=== PATIENT | female | born 1935 | race Caucasian/White ===

== ENCOUNTER → 2017-08-31 08:48 | Outpatient (CLI) | payer MEDICARE ==
[2013-08-23 18:18] VITALS: BMI 26.6
[~2017-08-31 08:48] MED LIST: ASPIRIN 81 MG E81 MG PO; CARDIZEM60 MG PO; MULTI-DAY VITAM1 TAB PO; VIBRAMYCIN 100100 MG PO
[2017-08-31 09:17] LABS: HEMOGLOBIN A1C 6.1 % (4.8-6.0)
[2017-08-31 09:38] LABS: ANION GAP 16.5 mmol/L (8-16); CALCIUM 9.6 mg/dL (8.5-10.1); CARBON DIOXIDE 24.6 mmol/L (21.0-32.0); CREATININE - SERUM 1.1 mg/dL (0.6-1.3); POTASSIUM - SERUM 4.1 mmol/L (3.5-5.1)
== END | disposition home or self-care (01) ==
LOC: D.LAB 08:45
PROVIDERS: Family Medicine
DX: E03.9 Hypothyroidism, unspecified (principal); R73.9 Hyperglycemia, unspecified; E78.00 Pure hypercholesterolemia, unspecified; N18.9 Chronic kidney disease, unspecified

== ENCOUNTER → 2018-01-25 11:05 | Outpatient (CLI) | payer MEDICARE ==
[2013-08-23 18:18] VITALS: BMI 26.6
== END | disposition home or self-care (01) ==
LOC: D.CT 11:05
DX: F03.90 Unspecified dementia, unspecified severity, without behavioral disturbance, psychotic disturbance, mood disturbance, and anxiety (principal)

== ENCOUNTER 2019-08-15 11:48 | Emergency (ER) | payer MEDICARE ==
[~2019-08-15] VITALS: Ht 165.1 cm; Wt 65.9 kg
[2019-08-15 11:52] VITALS: Ht 165.1 cm; Wt 65.9 kg
[2019-08-15] MEDS ORDERED: ZOLOFT50 MG PO (11:53)
[2019-08-15] MEDS ORDERED: NAMENDA10 MG PO (11:54)
[2019-08-15 12:23] LABS: BASOPHILS 0.6 % (0-2); EOSINOPHILS 0.2 % (0-7); HEMATOCRIT 47.6 % (36.0-48.0); HEMOGLOBIN 16.4 g/dL (12-16); IMMATURE GRANULOCYTES 0.2 % (0-5); LYMPHOCYTES 31.2 % (15-50); MCH 33.3 pg (26.0-34.0); MCHC 34.5 g/dL (31.0-37.0); MCV 96.7 fL (80.0-100.0); MEAN PLATELET VOLUME 9.8 fL (7.4-10.4); NEUTROPHILS 48.8 % (40-80); RBC 4.92 10x6/uL (4.00-5.40); RDW 12.5 % (11.5-14.5); WBC 8.3 10x3/uL (4.8-10.8)
[2019-08-15 12:33] LABS: PLATELET COUNT 193 10x3/uL (130-400)
[2019-08-15 12:44] LABS: ANION GAP 15.2 mmol/L (8-16); CALCIUM 8.9 mg/dL (8.5-10.1); CARBON DIOXIDE 25.6 mmol/L (21.0-32.0); CREATININE - SERUM 1.2 mg/dL (0.6-1.3); POTASSIUM - SERUM 3.8 mmol/L (3.5-5.1)
[2019-08-15 12:46] LABS: ALBUMIN 3.6 g/dL (3.4-5.0); BILIRUBIN - TOTAL 0.44 mg/dL (0.2-1.3); PROTEIN - SERUM 6.9 g/dL (6.4-8.2)
[2019-08-15] MEDS ORDERED: VALTREX1000 MG PO (13:47)
[2019-08-15] MEDS ORDERED: KEFLEX500 MG PO (13:47)
[2019-08-15 14:33] VITALS: BP 134/75
== END 2019-08-15 14:18 | disposition home or self-care (01) ==
LOC: D.ER 11:48
PROVIDERS: Family Medicine
DX: B02.9 Zoster without complications (principal)

== ENCOUNTER → 2019-09-30 10:58 | Outpatient (CLI) | payer MEDICARE ==
[2019-08-15 11:52] VITALS: BMI 24.1
[~2019-09-30 10:58] MED LIST changes: +KEFLEX500 MG PO; +NAMENDA10 MG PO; +VALTREX1000 MG PO; +ZOLOFT50 MG PO
== END | disposition home or self-care (01) ==
LOC: D.MAMMO 10:58
PROVIDERS: ATTEND Nurse Practitioner Gerontology
DX: N63.20 Unspecified lump in the left breast, unspecified quadrant (principal)

== ENCOUNTER 2021-02-26 04:29 | Inpatient (IN) | payer MEDICARE ==
[~2021-02-26] VITALS: Ht 152.4 cm; Wt 54.5 kg
--- NOTE | 2021-02-26 04:45 | NUR ---
EMS PLACED TRAUMA BAND NUMBER [id number]
[2021-02-26] MEDS ORDERED: VITAMIN D325 MC1 PO (06:13)
[2021-02-26] MEDS ORDERED: FISH OIL 1,0001 CA1 PO (06:14)
[2021-02-26] MEDS ORDERED: MAG-OX 400 MG400 MG PO (06:15)
[2021-02-26] MEDS ORDERED: ATARAX 25 MG TA25 MG PO ×2 (06:15→13:22)
[2021-02-26] MEDS ORDERED: ACETAMINOPHEN325 MG PO (06:16)
[2021-02-26] MEDS ORDERED: VITAMIN E200 UNI1 PO (06:16)
[2021-02-26] MEDS ORDERED: MULTI-DAY VITAM1 TAB PO (06:16)
[2021-02-26 06:48] LABS: BILIRUBIN NEGATIVE (NEGATIVE); KETONE NEGATIVE (NEGATIVE); NITRITE NEGATIVE (NEGATIVE); UROBILINOGEN NORMAL mg/dL (< 2)
[2021-02-26 06:55] LABS: ANION GAP 16.3 mmol/L (8-16); CALCIUM 9.5 mg/dL (8.5-10.1); CARBON DIOXIDE 22.1 mmol/L (21.0-32.0); CREATININE - SERUM 1.2 mg/dL (0.6-1.3); POTASSIUM - SERUM 3.4 mmol/L (3.5-5.1)
[2021-02-26 06:57] LABS: BASOPHILS 0.2 % (0-2); EOSINOPHILS 0.1 % (0-7); HEMATOCRIT 42.9 % (36.0-48.0); HEMOGLOBIN 14.6 g/dL (12-16); IMMATURE GRANULOCYTES 0.4 % (0-5); LYMPHOCYTE ABS# 1.36 10x3/uL (1.18-3.74); MCH 31.5 pg (26.0-34.0); MCV 92.5 fL (80.0-100.0); MEAN PLATELET VOLUME 10.7 fL (7.4-10.4); MONOCYTES 6.1 % (2-11); NEUTROPHIL ABS# 14.53 10x3/uL (1.56-6.13); NEUTROPHILS 85.2 % (40-80); RBC 4.64 10x6/uL (4.00-5.40); RDW 12.9 % (11.5-14.5)
[2021-02-26 06:59] LABS: PLATELET COUNT 277 10x3/uL (130-400)
[2021-02-26 07:02] LABS: ALBUMIN 3.5 g/dL (3.4-5.0); BILIRUBIN - TOTAL 0.39 mg/dL (0.2-1.3); PROTEIN - SERUM 6.8 g/dL (6.4-8.2)
[2021-02-26 07:16] LABS: INR 1.1 (0.85-1.17); PROTIME 13.1 SECONDS (11.6-15.0)
--- NOTE | 2021-02-26 07:30 | NUR ---
ASSUMED CARE OF PT. RESTING IN BED. PT ALERT TO NAME ONLY. SKIN W/D/P. NAD NOTED. NS INFUSING @ 75 ML/HR LAC NO PROBLEMS AT INSERTION ASITE. VSS. S/O AT BS
--- NOTE | 2021-02-26 07:32 | NUR ---
PT NEEDING TO VOID, PLACED A PURWIC ON PT, CONNECTED TO SUCTION. 200CC OUT
[2021-02-26 07:51] VITALS: BP 168/71
--- NOTE | 2021-02-26 08:55 | NUR ---
PT SCREAMING/CALLING OUT. VERY AGGITATED. GORDY CORDON PAGED AND NEW ORDER RCVD/ADMIN
--- NOTE | 2021-02-26 09:27 | NUR ---
RESTING QUIETLY IN BED. VSS. S/O AT BS
[2021-02-26 09:28] VITALS: BP 163/71
--- NOTE | 2021-02-26 10:00 | NUR ---
MOBILE EQUIPMENT OPERATOR HERE. PT SCREAMS OUT WITH ANY MOVMENT. XRAYS COMPLETED. MED PER PRN ORDERS FOR PAIN
--- NOTE | 2021-02-26 10:26 | NUR ---
PT RESTING QIETLY IN BED WITH EYES CLOSED, SNORING RESP. O2 SATS 88-89 % ON RA. O2 PLACED @ 2 L PNC AND SATS IMMED IMPROVED TO 95-97%
[2021-02-26 11:30] VITALS: BP 156/70
--- NOTE | 2021-02-26 11:46 | NUR ---
REPORT TO DULCE LESLIE
--- NOTE | 2021-02-26 13:17 | NUR ---
REC'D TO ROOM 2227 WITH ALERT TO SELF ONLY. RESP EVEN AND UNLABORED WITH NO DISTRESS NOTED. CAN VOICE SOME NEEDS AND WANTS. INCONT AT TIMES WITH ANSELMO CARE GIVEN PRN AND EVERY 2 HOURS. PURWICK IN USE. NO C/O NOTED OR VOICED AT THIS TIME. AND CL IN REACH AT BEDSIDE.
[2021-02-26 14:59] VITALS: BP 151/75
[2021-02-26 17:32] VITALS: BP 150/70
[2021-02-26 21:31] VITALS: BP 160/76
--- NOTE | 2021-02-26 22:43 | NUR ---
PT RESTING IN BED. PT IS CONFUSED. PT COMPLAINS OF PAIN TO LEFT HIP AREA. PAIN MEDICATION WAS GIVEN. O2 AT 2-3L WAS PLACED DUE TO O2 READING BEING 88% ROOM AIR. BED IN LOW POSITION AND CALL LIGHT IN REACH.
[2021-02-27 01:08] VITALS: BP 166/79
[2021-02-27 05:41] VITALS: BP 168/81
[2021-02-27 06:58] LABS: BASOPHILS 0.2 % (0-2); EOSINOPHILS 0.8 % (0-7); HEMATOCRIT 37.7 % (36.0-48.0); HEMOGLOBIN 12.4 g/dL (12-16); IMMATURE GRANULOCYTES 0.3 % (0-5); LYMPHOCYTE ABS# 1.69 10x3/uL (1.18-3.74); MCH 30.7 pg (26.0-34.0); MCHC 32.9 g/dL (31.0-37.0); MCV 93.3 fL (80.0-100.0); MEAN PLATELET VOLUME 10.9 fL (7.4-10.4); NEUTROPHIL ABS# 6.94 10x3/uL (1.56-6.13); NEUTROPHILS 69.7 % (40-80); PLATELET COUNT 244 10x3/uL (130-400); RBC 4.04 10x6/uL (4.00-5.40); RDW 12.9 % (11.5-14.5)
[2021-02-27 07:31] LABS: ALBUMIN 2.9 g/dL (3.4-5.0); ANION GAP 12.1 mmol/L (8-16); BILIRUBIN - TOTAL 0.85 mg/dL (0.2-1.3); CALCIUM 8.3 mg/dL (8.5-10.1); CARBON DIOXIDE 26.6 mmol/L (21.0-32.0); POTASSIUM - SERUM 3.7 mmol/L (3.5-5.1); PROTEIN - SERUM 5.6 g/dL (6.4-8.2)
--- NOTE | 2021-02-27 07:34 | NUR ---
RECIEVED BEDSIDE REPORT. BED LOW POSITION, CALL LIGHT IN REACH. PATIENT CONFUSED. RAFAELA ALARM ON. COMPLAINS OF PAIN IN BROKEN HIP. WILL CONTINUE TO MONITOR.
[2021-02-27 09:07] VITALS: BP 139/58
[2021-02-27 14:06] VITALS: BP 143/56
[2021-02-27 16:12] VITALS: BP 148/68
[2021-02-27 20:00] VITALS: BP 132/67
[2021-02-28] VITALS: BP 166/79
[2021-02-28 06:18] LABS: ALBUMIN 2.6 g/dL (3.4-5.0); ANION GAP 11.1 mmol/L (8-16); BILIRUBIN - TOTAL 0.59 mg/dL (0.2-1.3); CALCIUM 8.6 mg/dL (8.5-10.1); CARBON DIOXIDE 26.5 mmol/L (21.0-32.0); CREATININE - SERUM 0.9 mg/dL (0.6-1.3); POTASSIUM - SERUM 3.6 mmol/L (3.5-5.1); PROTEIN - SERUM 5.7 g/dL (6.4-8.2)
[2021-02-28 06:25] LABS: BASOPHILS 0.2 % (0-2); EOSINOPHILS 3.3 % (0-7); HEMATOCRIT 36.4 % (36.0-48.0); HEMOGLOBIN 11.7 g/dL (12-16); IMMATURE GRANULOCYTES 0.2 % (0-5); LYMPHOCYTE ABS# 1.84 10x3/uL (1.18-3.74); LYMPHOCYTES 18.7 % (15-50); MCH 30.4 pg (26.0-34.0); MCHC 32.1 g/dL (31.0-37.0); MCV 94.5 fL (80.0-100.0); MEAN PLATELET VOLUME 11.4 fL (7.4-10.4); MONOCYTES 9.6 % (2-11); PLATELET COUNT 214 10x3/uL (130-400); RBC 3.85 10x6/uL (4.00-5.40); WBC 9.9 10x3/uL (4.8-10.8)
[2021-02-28 07:40] VITALS: BP 160/66
--- NOTE | 2021-02-28 07:40 | NUR ---
RECIEVED BEDSIDE REPORT. BED LOW POSITION, CALL LIGHT IN REACH. PATIENT CONFUSED, AND AGITATED. FREE FROM SIGNS OF DISTRESS. REFUSES TO WEAR OXYGEN CANNULA. SATURATION STAYING AROUND 93%. WILL CONTINUE TO MONITOR.
[2021-02-28 08:29] VITALS: BP 161/69
--- NOTE | 2021-02-28 11:21 | NUR ---
PATIENT PULLED OUT IV. WILL ATTEMPT TO PLACE ONE TODAY DUE TO PATIENT REFUSING TO LET US STICK AT THIS TIME.
--- NOTE | 2021-02-28 12:27 | NUR ---
22 GAUGE IV PLACED IN THE LEFT WRIST.
[2021-02-28 13:34] VITALS: BP 151/55
[2021-02-28 17:30] VITALS: BP 168/75
--- NOTE | 2021-02-28 17:33 | NUR ---
IN BED CALLING OUT FOR HER MOTHER. PATIENT REFUSES TO TELL THE NURSE WHAT SHE NEEDS. DEMENTIA RELATED CONFUSION. FREE FROM SIGNS OF DISTRESS. WILL CONTINUE TO MONITOR.
[2021-03-01] VITALS (9 sets, daily range): BP systolic 131–164; BP diastolic 38–86; Ht 152.4 cm; Wt 54.5 kg
[2021-03-01 06:29] LABS: BASOPHILS 0.2 % (0-2); EOSINOPHILS 2.7 % (0-7); HEMOGLOBIN 12.6 g/dL (12-16); IMMATURE GRANULOCYTES 0.2 % (0-5); LYMPHOCYTE ABS# 1.56 10x3/uL (1.18-3.74); LYMPHOCYTES 15.1 % (15-50); MCH 30.4 pg (26.0-34.0); MCHC 33.2 g/dL (31.0-37.0); MEAN PLATELET VOLUME 11.2 fL (7.4-10.4); MONOCYTES 12.2 % (2-11); NEUTROPHIL ABS# 7.18 10x3/uL (1.56-6.13); NEUTROPHILS 69.6 % (40-80); PLATELET COUNT 242 10x3/uL (130-400); RBC 4.14 10x6/uL (4.00-5.40); RDW 12.6 % (11.5-14.5); WBC 10.3 10x3/uL (4.8-10.8)
[2021-03-01 06:40] LABS: MCV 91.8 fL (80.0-100.0)
[2021-03-01 06:53] LABS: ALBUMIN 2.8 g/dL (3.4-5.0); ANION GAP 17.6 mmol/L (8-16); BILIRUBIN - TOTAL 0.99 mg/dL (0.2-1.3); CALCIUM 8.7 mg/dL (8.5-10.1); CARBON DIOXIDE 23.9 mmol/L (21.0-32.0); CREATININE - SERUM 0.9 mg/dL (0.6-1.3); POTASSIUM - SERUM 3.5 mmol/L (3.5-5.1); PROTEIN - SERUM 5.7 g/dL (6.4-8.2)
--- NOTE | 2021-03-01 07:00 | NUR ---
PT NPO SINCE MIDNIGHT. CONFUSED. HIBICLENS AND BED CHANGE COMPLETE. EKG ON CHART. CONSENTS SIGNED BY SPOUSE AND ON CHART.
--- NOTE | 2021-03-01 18:14 | NUR ---
PT ARRIVED TO OR WITH GOLD RING ON LEFT RING FINGER. PT WAS COMBATIVE SO RING WAS REMOVED AFTER ANESTHESIA WAS ADMINISTERED. CONTATED FLOOR TO HAVE NURSE TAKE AND SECURE JEWERLY. WHEN NO ONE ARRIVED TO RETRIEVE JEWERLY, I TOOK THE RING TO THE FLOOR NURSE TAKING CARE OF THE PATIENT ON MED-SURGLEVAR. RING WAS PLACED IN A BAG AND MARKED WITH A PATIENT STICKER BEFORE GIVING IT TO JENNIFER.
--- NOTE | 2021-03-01 18:21 | NUR ---
PT LEFT HIP/LEG CLEANSED WITH ALCOHOL PRIOR TO PREP. PREPPED WITH CHLORAPREP x2 FROM ABOVE HIP TO CALF CIRCUMFERENTIALLY. RN IN STERILE ATTIRE TO PREP.
[2021-03-02] VITALS (8 sets, daily range): BP systolic 116–161; BP diastolic 61–75
--- NOTE | 2021-03-02 07:22 | NUR ---
PATIENT RETURNED FROM SURGERY IN STABLE CONDITION, PAIN WAS MANAGED WITH THE PRESCRIBED PAIN MEDICATION, SHE PULLED OUT HER IV, TRIED TO PULL OUT CATHETER, REFUSED SCD'S, TRIED TO PUT TELE ON AND SHE KEEPS HITTING AT ME, SHE IS CURRENTLY RESTING IN BED WITH HER EYES CLOSED.
[2021-03-02 07:44] LABS: BASOPHILS 0 % (0-2); EOSINOPHILS 0 % (0-7); HEMATOCRIT 33.6 % (36.0-48.0); HEMOGLOBIN 11.1 g/dL (12-16); IMMATURE GRANULOCYTES 0.3 % (0-5); LYMPHOCYTE ABS# 0.97 10x3/uL (1.18-3.74); MCH 30.7 pg (26.0-34.0); MCV 92.8 fL (80.0-100.0); MEAN PLATELET VOLUME 11.1 fL (7.4-10.4); MONOCYTES 9.1 % (2-11); NEUTROPHIL ABS# 9.94 10x3/uL (1.56-6.13); NEUTROPHILS 82.6 % (40-80); RBC 3.62 10x6/uL (4.00-5.40); RDW 12.7 % (11.5-14.5); WBC 12.1 10x3/uL (4.8-10.8)
[2021-03-02 07:56] LABS: PLATELET COUNT 298 10x3/uL (130-400)
[2021-03-02 08:02] LABS: ALBUMIN 2.5 g/dL (3.4-5.0); ANION GAP 16.3 mmol/L (8-16); BILIRUBIN - TOTAL 0.45 mg/dL (0.2-1.3); CALCIUM 8.2 mg/dL (8.5-10.1); CARBON DIOXIDE 23.4 mmol/L (21.0-32.0); CREATININE - SERUM 1.1 mg/dL (0.6-1.3); POTASSIUM - SERUM 4.7 mmol/L (3.5-5.1); PROTEIN - SERUM 5.3 g/dL (6.4-8.2)
--- NOTE | 2021-03-03 02:47 | NUR ---
PATIENT GOT VERY LITTLE SLEEP, SHE HAS BEEN TAKING HER GOWN OFF AND TRYING TO PULL AT HER CATHETER. SHE HAS BEEN VERY CONFUSED, SHE TOLD US TO GET OUT SHE WAS AT THE [facility]. SHE IS CURRENTLY RESTING IN BED.
[2021-03-03 04:00] VITALS: BP 138/68
[2021-03-03 06:20] LABS: BASOPHILS 0.2 % (0-2); EOSINOPHILS 0.9 % (0-7); HEMATOCRIT 30.7 % (36.0-48.0); IMMATURE GRANULOCYTES 0.2 % (0-5); LYMPHOCYTE ABS# 1.62 10x3/uL (1.18-3.74); LYMPHOCYTES 12.8 % (15-50); MCH 30.5 pg (26.0-34.0); MCHC 32.6 g/dL (31.0-37.0); MCV 93.6 fL (80.0-100.0); MEAN PLATELET VOLUME 10.8 fL (7.4-10.4); NEUTROPHIL ABS# 9.24 10x3/uL (1.56-6.13); NEUTROPHILS 72.9 % (40-80); PLATELET COUNT 311 10x3/uL (130-400); RBC 3.28 10x6/uL (4.00-5.40); RDW 12.8 % (11.5-14.5); WBC 12.7 10x3/uL (4.8-10.8)
[2021-03-03 06:46] LABS: ALBUMIN 2.5 g/dL (3.4-5.0); BILIRUBIN - TOTAL 0.63 mg/dL (0.2-1.3); CALCIUM 8.8 mg/dL (8.5-10.1); CARBON DIOXIDE 23.8 mmol/L (21.0-32.0); PROTEIN - SERUM 6.1 g/dL (6.4-8.2)
[2021-03-03 06:47] LABS: ANION GAP 12.6 mmol/L (8-16); CREATININE - SERUM 1.4 mg/dL (0.6-1.3); POTASSIUM - SERUM 3.4 mmol/L (3.5-5.1)
[2021-03-03 09:01] VITALS: BP 149/130
--- NOTE | 2021-03-03 10:20 | NUR ---
NO TELE TO BOILER HOUSE OPERATOR IN ICU
--- NOTE | 2021-03-03 11:00 | NUR ---
RESTING IN BED, FAMILY IN ROOM, NO DISTRESS NOTED, SL IN PLACE, NO DRESSING TO L HIP, CITLALY INTACT
--- NOTE | 2021-03-03 11:22 | NUR ---
ANGELA RAMEY, OBTAINED SPECIMEN
[2021-03-03 11:39] LABS: BILIRUBIN NEGATIVE (NEGATIVE); KETONE NEGATIVE (NEGATIVE); NITRITE NEGATIVE (NEGATIVE); UROBILINOGEN NORMAL mg/dL (< 2)
--- NOTE | 2021-03-03 12:51 | NUR ---
combative with staff, yelling, scratching, c/o pain but refuses to take pain med or ativan,cont to monitor
--- NOTE | 2021-03-03 13:47 | NUR ---
Nutrition follow-up: Pt s/p hip repair Diet advanced to regular PO intake very poor due to pt with confusion, aggression toward staff Labs reviewed Wt: 120# Recommendations: Appetite stimulant if medically feasible RDN will order Ensure with meals RDN follow-up: 03/05/21
[2021-03-03 13:55] VITALS: BP 134/59
[2021-03-03 14:45] LABS: ALBUMIN 2.3 g/dL (3.4-5.0); ANION GAP 11.3 mmol/L (8-16); BILIRUBIN - TOTAL 0.53 mg/dL (0.2-1.3); CALCIUM 8.4 mg/dL (8.5-10.1); CARBON DIOXIDE 24.2 mmol/L (21.0-32.0); CREATININE - SERUM 1.4 mg/dL (0.6-1.3); POTASSIUM - SERUM 3.5 mmol/L (3.5-5.1); PROTEIN - SERUM 5.9 g/dL (6.4-8.2)
--- NOTE | 2021-03-03 16:47 | NUR ---
TELE PUT ON PT, PT ANGRY, IMMEDIATELY STARTED PULLING TELE OFF, MEDICATED FOR PAIN, CONT TO MONITOR
--- NOTE | 2021-03-03 16:51 | NUR ---
HOSPICE HOME CARE PHONED FOR UPDATE, SHOULD DC SOON
[2021-03-03 17:46] VITALS: BP 138/67
[2021-03-03 19:53] VITALS: BP 130/64
[2021-03-04 03:35] VITALS: BP 155/61
--- NOTE | 2021-03-04 04:29 | NUR ---
PATIENT CONTINUES TO BE CONFUSED AND COMBATIVE. HER PAIN WAS MANAGED WITH THE PRESCRIBED PAIN MEDICATIONS, SHE DID GET A LITTLE REST TONIGHT.
[2021-03-04 05:18] LABS: BASOPHILS 0.2 % (0-2); EOSINOPHILS 0.7 % (0-7); HEMATOCRIT 29.3 % (36.0-48.0); HEMOGLOBIN 9.5 g/dL (12-16); IMMATURE GRANULOCYTES 0.3 % (0-5); LYMPHOCYTE ABS# 1.34 10x3/uL (1.18-3.74); MCH 30.4 pg (26.0-34.0); MCHC 32.4 g/dL (31.0-37.0); MCV 93.6 fL (80.0-100.0); MEAN PLATELET VOLUME 10.7 fL (7.4-10.4); MONOCYTES 12.7 % (2-11); NEUTROPHIL ABS# 9.16 10x3/uL (1.56-6.13); NEUTROPHILS 75.1 % (40-80); PLATELET COUNT 299 10x3/uL (130-400); RBC 3.13 10x6/uL (4.00-5.40); RDW 12.8 % (11.5-14.5); WBC 12.2 10x3/uL (4.8-10.8)
[2021-03-04 05:45] LABS: ALBUMIN 2.2 g/dL (3.4-5.0); ANION GAP 13.5 mmol/L (8-16); BILIRUBIN - TOTAL 0.69 mg/dL (0.2-1.3); CALCIUM 8.4 mg/dL (8.5-10.1); CARBON DIOXIDE 23.1 mmol/L (21.0-32.0); CREATININE - SERUM 0.9 mg/dL (0.6-1.3); POTASSIUM - SERUM 3.6 mmol/L (3.5-5.1); PROTEIN - SERUM 5.6 g/dL (6.4-8.2)
--- NOTE | 2021-03-04 07:00 | NUR ---
0700 BEDSIDE REPORT RECEIVED PT IN BED WITH LEGS OVER RAILS REPOSITIONED BED PT PULLES OFF PUREWICK OUT OF PLACE INCONTINENT ASSESSMENT COMPLITE
[2021-03-04 08:34] VITALS: BP 135/75
[2021-03-04] MEDS ORDERED: ELIQUIS2.5 MG PO (12:21)
[2021-03-04] MEDS ORDERED: MUCINEX600 MG PO (12:24)
[2021-03-04] MEDS ORDERED: TESSALON PERLE100 MG PO (12:24)
[2021-03-04] MEDS ORDERED: VENTOLIN HFA [SP8 GM INH (12:24)
[2021-03-04] MEDS ORDERED: DOXYCYCLINE HY100 M2 PO (12:24)
--- NOTE | 2021-03-04 13:31 | NUR ---
OT NOTE: PT REQUIRED MAX A FOR BED MOB TASKS. PT REQUIRED MAX A FOR BED TO BSC TSF. PT REQUIRED TOTAL A FOR LB HYGIENE. [id number] KURT LOVE COTA
--- NOTE | 2021-03-04 15:31 | MORECARE ---
CASE MANAGEMENT DISCHARGE SUMMARY PATIENT: ROSEMARIE HERNANDEZ UNIT: [id number] ADM DATE: 02/26/21 AGE: 85 : 35 SEX: F ROOM/BED: D.2227 AUTHOR: ASHA,DOC PHYSICIAN: REFERRING PHYSICIAN: SUHAIL HO MD DATE OF SERVICE: 03/04/21 Case Management Discharge Planning Summary COMMENTS ENTERED DATE: 03/04/21 15:24 CT COMMENT TYPE: Discharge Planning REVIEWER: Jaylene Saldaña CM MET WITH PATIENT AND HER AT BEDSIDE ABOUT DC PLANNING NEEDS. STATES SHE WAS AT THE [facility] HOSPICE BUT WILL NEED TO RETURN FOR REHAB. SHE IS POST OP HIP. THE [facility] WILL NEED TO GET PREAUTH FROM HER INSURANCE COMPANY FOR REHAB. THE [facility] IS WORKING ON THE PREAUTH. I ANTICIPATE TOMORROW OR THE NEXT DAY FOR AN ANSWER ON THE PREAUTH. CM TO FOLLOW AND ASSIST NEEDED. DCP REVIEW SUMMARY ANTICIPATED D/C DATE: EXPECTED LOS : CASE STATUS: DCP Initiated INITIAL REVIEW: 02/26/2021 INITIAL REVIEWER: Jaylene Saldaña FINAL DISCHARGE DISPOSITION: : FINAL REVIEWER: FINAL REVIEW DATE: DCP Focus Questions & Answers QUESTION: ANSWER : PROVIDER NETWORKING REVIEW DATE: 03/04/2021 SERVICE TYPE: Group Home Facility REVIEWER: Jaylene Saldaña PROVIDER: FINAL PROVIDER? : FINAL DATE/TIME: CT PATIENT: ROSEMARIE HERNANDEZ ENCOUNTER: [id number] MEDICAL RECORD#: [id number] ADMISSION DATE: 02/26/2021 DISCHARGE DATE: ATTENDING MD: SUHAIL SALAZAR : AGE: 85 MARITAL STATUS: M DC PLAN ID: [id number] FACILITY: [facility] PRINTED ON: 03/04/21 15:30 CT All edits/amendments must be made on the electronic document DICTATION DATE: 03/04/21 153 ON CALL: BELLA 03/04/211529 RPT#: [id number] DC DATE: STATUS: ADM IN [facility] [address] [place] [address] END OF REPORT
--- NOTE | 2021-03-04 15:57 | MORECARE ---
CASE MANAGEMENT DISCHARGE SUMMARY PATIENT: ROSEMARIE HERNANDEZ UNIT: [id number] ADM DATE: 02/26/21 AGE: 85 : 35 SEX: F ROOM/BED: D.2227 AUTHOR: ASHA,DOC PHYSICIAN: REFERRING PHYSICIAN: SUHAIL HO MD DATE OF SERVICE: 03/04/21 Case Management Discharge Planning Summary COMMENTS ENTERED DATE: 03/04/21 15:24 CT COMMENT TYPE: Discharge Planning REVIEWER: Jaylene Saldaña CM MET WITH PATIENT AND HER AT BEDSIDE ABOUT DC PLANNING NEEDS. STATES SHE WAS AT THE [facility] ON HOSPICE BUT WILL NEED TO RETURN FOR REHAB. SHE IS POST OP HIP. THE [facility]K WILL NEED TO GET PREAUTH FROM HER INSURANCE COMPANY FOR REHAB. THE [facility]K IS WORKING ON THE PREAUTH. I ANTICIPATE TOMORROW OR THE NEXT DAY FOR AN ANSWER ON THE PREAUTH. CM TO FOLLOW AND ASSIST NEEDED. Appended by Jaylene Saldaña on 03/04/2021 15:44 CDT: STATES THEY HAVE A MEMBERSHIP WITH [employer]. HUSBANDS PHONE NUMBER [phone]. DCP REVIEW SUMMARY ANTICIPATED D/C DATE: EXPECTED LOS : CASE STATUS: DCP Initiated INITIAL REVIEW: 02/26/2021 INITIAL REVIEWER: Jaylene Saldaña FINAL DISCHARGE DISPOSITION: : FINAL REVIEWER: FINAL REVIEW DATE: DCP Focus Questions & Answers QUESTION: ANSWER : PROVIDER NETWORKING REVIEW DATE: 03/04/2021 SERVICE TYPE: Longterm Facility REVIEWER: Jaylene Saldaña PROVIDER: FINAL PROVIDER? : FINAL DATE/TIME: CT PATIENT: ROSEMARIE HERNANDEZ ENCOUNTER: [id number] MEDICAL RECORD#: [id number] ADMISSION DATE: 02/26/2021 DISCHARGE DATE: ATTENDING MD: SUHAIL SALAZAR : AGE: 85 MARITAL STATUS: M DC PLAN ID: [id number] FACILITY: [facility] PRINTED ON: 03/04/21 15:57 CT All edits/amendments must be made on the electronic document DICTATION DATE: 03/04/211556 PHOTOGRAMMETRIC COMPILATION SPECIALIST: BELLA 03/04/211556 RPT#: [id number] DC DATE: STATUS: ADM IN [facility] [address] [place] [address] END OF REPORT
[2021-03-04 16:40] VITALS: BP 112/67
[2021-03-04 20:00] VITALS: BP 121/64
--- NOTE | 2021-03-05 02:25 | NUR ---
ASSESSED AT THE BEGINNING OF THE SHIFT. PT IS ALERT AND CONFUSED. SHE HAS A LEFT HIP INCISION WITH CITLALY INTACT AND NO DRAINAGE. THERE IS NO DRESSING DUE TO PATIENT TAKING DRESSINGS OFF. SHE HAS BEEN INCONT OF URINE ONCE AND ONE TIME SHE ASKED FOR THE BEDPAN. WHEN MEDS WERE GIVEN SHE TOOK THEM ONE AT A TIME WITH NO PROBLEM. SHE DID GET TIRED OF TAKING THEM AND HAD TO BE COACHED TO FINISH THEM. SHE WAS GIVEN NORCO FOR HIP PAIN AT THAT TIME. SHE IS AWAKE NOW AND HAS BEEN CALLING OUT FOR SOMEONE TO BE WITH HER. WE HAVE BEEN MOVING HER UP IN BED, HOLDING HER HAND AND TALKING WITH HER BUT SHE CANNOT GO TO SLEEP. SHE CRIES OUT WHEN WE MOVE HER BECAUSE OF HER HIP SO SHE HAS BEEN GIVEN PAIN MED ORDERED ONCE AGAIN.
[2021-03-05 04:00] VITALS: BP 167/72
--- NOTE | 2021-03-05 06:43 | NUR ---
PT HAS HAD HER CLOTHES PUT BACK ON ALL DURING THE NIGHT. SHE EVEN GETS MAD WHEN WE TRY TO COVER HER UP. MOST OF THE TIME SHE IS NAKED WITH HER GOWN WADDED UP ON HER STOMACH.
[2021-03-05 07:13] LABS: ALBUMIN 2.4 g/dL (3.4-5.0); ANION GAP 14.7 mmol/L (8-16); BILIRUBIN - TOTAL 0.82 mg/dL (0.2-1.3); CALCIUM 8.3 mg/dL (8.5-10.1); CARBON DIOXIDE 24.5 mmol/L (21.0-32.0); CREATININE - SERUM 0.9 mg/dL (0.6-1.3); POTASSIUM - SERUM 4.2 mmol/L (3.5-5.1); PROTEIN - SERUM 5.4 g/dL (6.4-8.2)
[2021-03-05 08:47] LABS: BASOPHILS 0.1 % (0-2); HEMATOCRIT 29.2 % (36.0-48.0); HEMOGLOBIN 9.6 g/dL (12-16); IMMATURE GRANULOCYTES 0.4 % (0-5); LYMPHOCYTE ABS# 2.12 10x3/uL (1.18-3.74); LYMPHOCYTES 15.5 % (15-50); MCH 30.6 pg (26.0-34.0); MCHC 32.9 g/dL (31.0-37.0); MONOCYTES 12.7 % (2-11); NEUTROPHIL ABS# 9.62 10x3/uL (1.56-6.13); NEUTROPHILS 70.3 % (40-80); RBC 3.14 10x6/uL (4.00-5.40); RDW 12.7 % (11.5-14.5); WBC 13.7 10x3/uL (4.8-10.8)
[2021-03-05 08:49] LABS: PLATELET COUNT 394 10x3/uL (130-400)
[2021-03-05 10:18] VITALS: BP 166/74
--- NOTE | 2021-03-05 13:00 | NUR ---
PATIENT IV INFILTRATED REFUSES TO LET RN RESTART IV PULLING UP IN BED FREQUENTLY
[2021-03-05 13:05] VITALS: BP 160/69
--- NOTE | 2021-03-05 14:21 | NUR ---
Nutrition Re-Assessment Diet: Regular PO intake: 0-25%, very poor PO intake Last BM: none recorded since admit Wt: 120# (03/01/21) Meds noted: abx, MVI, Magox, miralax, NS@75 Labs reviewed Estimated nutrition needs: 0306-7865 steve (25-35 Act), 55-72gms protein (1-1.3), 1375-1925mL fluid (or per MD) Nutrition diagnosis: Inadequate energy intake r/t inadequate oral intake AEB PO intake <50%. Nutrition goals: -PO intake will increase to >65% -Meet fluid needs -Stable weight DHS Recommendations/Interventions: -Continue regular diet. Will continue to honor food preferences. -Will add Ensure with meals. -MD may consider adding appetite stimulant as medically feasible. -RD will follow-up 03/09/21.
--- NOTE | 2021-03-05 15:52 | NUR ---
OT NOTE: PT COMPLETED SUPINE TO SIT WITH MAX A. PT COMPLETED EOB SITTING WITH CGA. PT COMPLETED SIT TO STAND WITH MIN-MOD A. [phone] KURT LOVE COTA
[2021-03-05 17:31] VITALS: BP 149/55
--- NOTE | 2021-03-05 18:17 | NUR ---
0700 BEDSIDE REPORT RECEIVED PT IN BED WITH LEGS HANGING OFF THE BED PULLED PT UP WITH ASSIST X 2 PT SCREAMS LEFT HIP INCISION LACHO WITH CITLALY CDI
--- NOTE | 2021-03-05 18:21 | NUR ---
1000 SPOUSE AT BEDSIDE EMOTIONAL SUPPORT GIVEN PATIENT TAKING PILL WITH ENCOURAGEMENT
--- NOTE | 2021-03-05 18:22 | NUR ---
1130 PHYSICAL THERAPY X 2 ASSISTING PT TO RECLINER CHAIR ANGELA WELL
--- NOTE | 2021-03-05 18:23 | NUR ---
INSTRUCTED ON CLEAN CATCH FOR URINE SAMPLE 1500 SHIP OFFICER IN ROOM WITH PROCEDURE
[2021-03-05 21:01] VITALS: BP 178/83
--- NOTE | 2021-03-06 04:16 | NUR ---
I have reviewed this patient and I concur with the Shift Assessment completed by the Licensed Practical Nurse today this shift.
[2021-03-06 06:21] VITALS: BP 183/66
[2021-03-06 07:08] LABS: BASOPHILS 0.2 % (0-2); EOSINOPHILS 0.6 % (0-7); HEMOGLOBIN 10.1 g/dL (12-16); IMMATURE GRANULOCYTES 0.3 % (0-5); LYMPHOCYTE ABS# 1.77 10x3/uL (1.18-3.74); LYMPHOCYTES 13.3 % (15-50); MCH 30.2 pg (26.0-34.0); MCHC 32.6 g/dL (31.0-37.0); MCV 92.8 fL (80.0-100.0); MEAN PLATELET VOLUME 10.7 fL (7.4-10.4); MONOCYTES 10.5 % (2-11); NEUTROPHIL ABS# 9.99 10x3/uL (1.56-6.13); NEUTROPHILS 75.1 % (40-80); PLATELET COUNT 462 10x3/uL (130-400); RBC 3.34 10x6/uL (4.00-5.40); RDW 12.5 % (11.5-14.5); WBC 13.3 10x3/uL (4.8-10.8)
[2021-03-06 07:24] LABS: ALBUMIN 2.5 g/dL (3.4-5.0); ANION GAP 15.4 mmol/L (8-16); BILIRUBIN - TOTAL 0.87 mg/dL (0.2-1.3); CALCIUM 8.9 mg/dL (8.5-10.1); CARBON DIOXIDE 25.3 mmol/L (21.0-32.0); CREATININE - SERUM 0.9 mg/dL (0.6-1.3); POTASSIUM - SERUM 3.7 mmol/L (3.5-5.1); PROTEIN - SERUM 6.4 g/dL (6.4-8.2)
[2021-03-06 09:11] VITALS: BP 165/74
--- NOTE | 2021-03-06 11:34 | NUR ---
RESTING IN BED, NO DISTRESS NOTED, REMIANS CONFUSED, REFUSING TELE AND IV, IN ROOM
[2021-03-06 13:20] VITALS: BP 138/62
[2021-03-06 18:27] VITALS: BP 138/64
[2021-03-06 22:08] VITALS: BP 116/54
--- NOTE | 2021-03-07 03:55 | NUR ---
I have reviewed this patient and I concur with the Shift Assessment completed by the Licensed Practical Nurse today this shift.
[2021-03-07 05:54] VITALS: BP 117/76
[2021-03-07 06:18] LABS: BASOPHILS 0.3 % (0-2); EOSINOPHILS 1.3 % (0-7); HEMATOCRIT 29.5 % (36.0-48.0); HEMOGLOBIN 9.6 g/dL (12-16); IMMATURE GRANULOCYTES 0.3 % (0-5); LYMPHOCYTES 17.4 % (15-50); MCH 30.2 pg (26.0-34.0); MCHC 32.5 g/dL (31.0-37.0); MCV 92.8 fL (80.0-100.0); MEAN PLATELET VOLUME 10.7 fL (7.4-10.4); MONOCYTES 13.3 % (2-11); NEUTROPHIL ABS# 7.39 10x3/uL (1.56-6.13); NEUTROPHILS 67.4 % (40-80); PLATELET COUNT 534 10x3/uL (130-400); RBC 3.18 10x6/uL (4.00-5.40); RDW 12.8 % (11.5-14.5)
[2021-03-07 06:37] LABS: ALBUMIN 2.2 g/dL (3.4-5.0); ANION GAP 13.4 mmol/L (8-16); BILIRUBIN - TOTAL 0.61 mg/dL (0.2-1.3); CALCIUM 8.8 mg/dL (8.5-10.1); CARBON DIOXIDE 27.1 mmol/L (21.0-32.0); CREATININE - SERUM 0.8 mg/dL (0.6-1.3); POTASSIUM - SERUM 3.5 mmol/L (3.5-5.1); PROTEIN - SERUM 5.8 g/dL (6.4-8.2)
--- NOTE | 2021-03-07 07:43 | NUR ---
resting in bed, no distress noted, eyes closed, cont to monitor
[2021-03-07 09:42] VITALS: BP 170/57
[2021-03-07 14:35] VITALS: BP 135/63
[2021-03-07 18:35] VITALS: BP 130/60
[2021-03-07 20:00] VITALS: BP 137/61
[2021-03-08] VITALS: BP 140/61
--- NOTE | 2021-03-08 00:57 | NUR ---
I have reviewed this patient and I concur with the Shift Assessment completed by the Licensed Practical Nurse today this shift.
[2021-03-08 04:00] VITALS: BP 165/71
[2021-03-08 05:59] LABS: BASOPHILS 0.2 % (0-2); EOSINOPHILS 1.7 % (0-7); HEMATOCRIT 31.9 % (36.0-48.0); HEMOGLOBIN 10.3 g/dL (12-16); IMMATURE GRANULOCYTES 0.4 % (0-5); LYMPHOCYTE ABS# 2.04 10x3/uL (1.18-3.74); LYMPHOCYTES 17.1 % (15-50); MCH 30.3 pg (26.0-34.0); MCHC 32.3 g/dL (31.0-37.0); MCV 93.8 fL (80.0-100.0); MEAN PLATELET VOLUME 10.4 fL (7.4-10.4); MONOCYTES 11.3 % (2-11); NEUTROPHIL ABS# 8.24 10x3/uL (1.56-6.13); NEUTROPHILS 69.3 % (40-80); RDW 12.9 % (11.5-14.5); WBC 11.9 10x3/uL (4.8-10.8)
[2021-03-08 06:10] LABS: ALBUMIN 2.4 g/dL (3.4-5.0); ANION GAP 8.8 mmol/L (8-16); BILIRUBIN - TOTAL 0.56 mg/dL (0.2-1.3); CALCIUM 8.9 mg/dL (8.5-10.1); CARBON DIOXIDE 29.8 mmol/L (21.0-32.0); POTASSIUM - SERUM 3.6 mmol/L (3.5-5.1); PROTEIN - SERUM 6.1 g/dL (6.4-8.2)
[2021-03-08 06:19] LABS: PLATELET COUNT 641 10x3/uL (130-400)
--- NOTE | 2021-03-08 07:51 | OP ---
PATIENT NAME: ROSEMARIE HERNANDEZ MEDICAL RECORD: [id number] :35 LOCATION:[id number] ADMISSION DATE:02/26/21 SURGEON: VERONICA CACERES MD DATE OF OPERATION: 03/01/2021 PREOPERATIVE DIAGNOSIS: Left periprosthetic femur fracture. POSTOPERATIVE DIAGNOSIS: Left periprosthetic femur fracture. PROCEDURE PERFORMED: 1. Revision left total hip arthroplasty (femoral component). 2. Removal of components left femur. 3. Operative repair left proximal femur fracture with cable fixation. INDICATIONS FOR THE PROCEDURE: Ms. Hernandez is an 85-year-old female who underwent a left total hip arthroplasty approximately 10 to [address] Vargas. She has dementia and is a resident of a local [facility] facility. She was attempting to mobilize on her own this past evening when she fell and landed on her left hip. She sustained a left periprosthetic femur fracture, Edna B3. She was admitted and a preoperative workup was completed. Arrangements made for her to come to the operating room today for operative repair. Risks, benefits and alternatives of surgery were discussed with the patient and her and consent was obtained. DESCRIPTION OF PROCEDURE: The patient was met in the holding area where her identity and confirmation of procedure was performed. The left lower extremity was marked. She was taken to the operating room where she was placed supine on the operating table. Anesthesia was administered. She was then positioned on the [place] table. Extremities were positioned and padded appropriately. Left lower extremity was prepped and draped in a sterile fashion. The patient received preoperative antibiotics as well as TXA and a timeout was performed before initiating the case. Upon initiation of the case, an anterior Pop-Nelson approach was utilized for exposure. We incised through the skin and subcutaneous tissues over the anterior hip, dissecting down to the tensor fascia. The fascia was then split longitudinally and the interval between tensor and sartorius/rectus was utilized for deep exposure. We continued dissecting deep to identify the lateral circumflex vessels. These were tied and cauterized. We then dissected down to the anterior hip capsule and placed retractors around the superior and inferior hip. The anterior x-ray was obtained to verify our position. The anterior capsule was then excised. Femoral component was identified as well as the fracture at the edge of the greater trochanter extending down the femur. Once the hip was adequately exposed, it was dislocated with traction and rotation. The hook was placed under the proximal femur and the leg was taken into extension and adduction. The femoral component was loose and was able to be easily manipulated and removed from the canal. The leg was then replaced in neutral position. Two cables were placed using the cable passing device going around the medial cortex and coming laterally, being careful to stay on the bone. One was placed at the distal edge of the fracture and then one proximal just below the lesser trochanter. Placement position was confirmed under fluoroscopy. These were passed and then retrieved, the tensioning device was placed. These were sequentially tightened until we had good fixation of our proximal fracture. The cables were secured with the crimp device and then the ends were cut. We then turned our attention to preparation of the proximal femur. We reamed the canal with our canal finder, then began reaming with the size 13 going up to a size OPERATIVE REPORT [id number] ROSEMARIE HERNANDEZ 15. We attempted to place 14, but it was set too deep and was therefore removed. A size 15 modular hip stem was placed and tapped into position. This had good fit in the femoral canal. We then placed a guide and overreamed for placement of our modular body component. This was trialed with the size 19+20 height body component and neutral head and neck. The hip was reduced and noted to have good stability and near equal leg lengths. The hip was again dislocated and repositioned. There was comminution of the greater trochanter fragments and these were left free. The trial components were removed. The hip was irrigated thoroughly with saline. Our final body component was placed, adjusted for rotation and then tapped into position. It was securely tightened with the proximal screw and torque limiter. A size 36 neutral head was placed and tapped onto her body component. The hip was again reduced and had good stability, near equal leg lengths. Fluoroscopy was obtained that confirmed our positioning and placement. The hip was then irrigated thoroughly with saline. Joint solution was injected around the capsule of the proximal femur and the acetabulum. One gram of vancomycin powder was placed in the wound bed over the components. The tensor fascia was then closed with Vicryl suture. Subcutaneous tissues were irrigated thoroughly with saline and the remainder of the joint solution was injected. These were closed with 2-0 Vicryl and the skin was closed with raissa. A sterile dressing was placed. The patient was turned back over to anesthesia where she was awakened and taken to recovery room in stable condition. POSTOPERATIVE PLAN: The patient is going to return to the floor for continued postoperative care. She will receive 24 hours of postoperative antibiotics, will be started on DVT prophylaxis tomorrow. Physical therapy will be consulted to assist with mobilization, weightbearing as tolerated on the left lower extremity. PLAN: Return to the retirement for further care. COMPLICATIONS: None. ESTIMATED BLOOD LOSS: 200 mL. ANESTHESIA: General. TRANSINT:[id number] Voice Confirmation ID: [id number] DOCUMENT ID: [id number] VERONICA CACERES MD at 0751 CC: [id number] DICTATION DATE: 03/01/212052 WOMEN'S STUDIES PROFESSOR: 03/02/21 0240 [facility] IN [facility] [address] [place] [address]
[2021-03-08 08:00] VITALS: BP 116/80
--- NOTE | 2021-03-08 11:25 | MORECARE ---
CASE MANAGEMENT DISCHARGE SUMMARY PATIENT: ROSEMARIE HERNANDEZ UNIT: [id number] ADM DATE: 02/26/21 AGE: 85 : 35 SEX: F ROOM/BED: D.2227 AUTHOR: ASHA,DOC PHYSICIAN: REFERRING PHYSICIAN: SUHAIL HO MD DATE OF SERVICE: 03/08/21 Case Management Discharge Planning Summary COMMENTS ENTERED DATE: 03/08/21 11:20 CT COMMENT TYPE: Discharge Planning REVIEWER: Bhavana Sutherland RECEIVED A CALL FROM PATIENT'S POA AND SHE STATED THAT THEY ARE [id number] ANDWE SHOULD BE ABLE TO PROCEED [place] AUTH FOR THE [facility] FOR REHAB, I SPOKE WITH JUNIOR WITH THE [facility] AND SENT HER UPDATES, SHE STATED THAT THEY WOULD SUBMIT FOR AUTH TODAY CM TO FOLLOW AND ASSIST NEEDED ENTERED DATE: 03/04/21 15:24 CT COMMENT TYPE: Discharge Planning REVIEWER: Jaylene Saldaña CM MET WITH PATIENT AND HER AT BEDSIDE ABOUT DC PLANNING NEEDS. STATES SHE WAS AT THE [facility] ON HOSPICE BUT WILL NEED TO RETURN FOR REHAB. SHE IS POST OP HIP. THE [facility]K WILL NEED TO GET PREAUTH FROM HER INSURANCE COMPANY FOR REHAB. THE [facility] IS WORKING ON THE PREAUTH. I ANTICIPATE TOMORROW OR THE NEXT DAY FOR AN ANSWER ON THE PREAUTH. CM TO FOLLOW AND ASSIST NEEDED. Appended by Jaylene Saldaña on 03/04/2021 15:44 CDT: STATES THEY HAVE A MEMBERSHIP WITH [employer]. HUSBANDS PHONE NUMBER [phone]. DCP REVIEW SUMMARY ANTICIPATED D/C DATE: EXPECTED LOS : CASE STATUS: DCP Initiated INITIAL REVIEW: 02/26/2021 INITIAL REVIEWER: Jaylene Saldaña FINAL DISCHARGE DISPOSITION: : FINAL REVIEWER: FINAL REVIEW DATE: DCP Focus Questions & Answers QUESTION: ANSWER : PROVIDER NETWORKING REVIEW DATE: 03/04/2021 SERVICE TYPE: Group Home Facility REVIEWER: Jaylene Saldaña PROVIDER: FINAL PROVIDER? : FINAL DATE/TIME: CT PATIENT: ROSEMARIE HERNANDEZ ENCOUNTER: [id number] MEDICAL RECORD#: [id number] ADMISSION DATE: 02/26/2021 DISCHARGE DATE: ATTENDING MD: SUHAIL SALAZAR : AGE: 85 MARITAL STATUS: M DC PLAN ID: [id number] FACILITY: [facility] PRINTED ON: 03/08/21 11:25 CT All edits/amendments must be made on the electronic document DICTATION DATE: 03/08/211124 CONDUCTOR/ENGINEER: BELLA 03/08/21 112 RPT#: [id number] DC DATE: STATUS: ADM IN [facility] [address] [place] [address] END OF REPORT
--- NOTE | 2021-03-08 16:57 | NUR ---
0700 BEDSIDE REPORT RECEIVED AWAKE ALERT CALM CONFUSED PULLED UP IN BED WITH ASSIST X 2
--- NOTE | 2021-03-08 17:21 | NUR ---
OT NOTE: PT PERFORMED BETTER TODAY. BED MOB WITH MOD ASSIST; EOB SITTING WITH FAIR+/GOOD- BALANCE ONCE FEET WERE ON THE FLOOR. SIT TO STAND WITH MOD ASSIST AND USE OF WALKER; PT ABLE TO TAKE A FEW STEPS FORWARD AND BACKWARD WITH LESS PAIN NOTED TODAY. PT CONT TO REQUIRE EXT ASSIST WITH ADLS DUE TO DEMENTIA. ENA FERREIRA, OTR/L
[2021-03-08 20:00] VITALS: BP 145/63
--- NOTE | 2021-03-09 05:06 | NUR ---
I have reviewed this patient and I concur with the Shift Assessment completed by the Licensed Practical Nurse today this shift.
[2021-03-09 06:05] LABS: BASOPHILS 0.8 % (0-2); EOSINOPHILS 2.2 % (0-7); HEMATOCRIT 30.6 % (36.0-48.0); HEMOGLOBIN 10.2 g/dL (12-16); LYMPHOCYTES 17.3 % (15-50); MCH 30.7 pg (26.0-34.0); MCHC 33.5 g/dL (31.0-37.0); MCV 91.9 fL (80.0-100.0); MEAN PLATELET VOLUME 8.4 fL (7.4-10.4); MONOCYTES 8.6 % (2-11); NEUTROPHILS 71.1 % (40-80); PLATELET COUNT 645 10x3/uL (130-400); RBC 3.33 10x6/uL (4.00-5.40); RDW 13.2 % (11.5-14.5); WBC 11.7 10x3/uL (4.8-10.8)
[2021-03-09 06:51] LABS: ALBUMIN 2.4 g/dL (3.4-5.0); ANION GAP 13.5 mmol/L (8-16); BILIRUBIN - TOTAL 0.56 mg/dL (0.2-1.3); CALCIUM 8.8 mg/dL (8.5-10.1); CREATININE - SERUM 0.9 mg/dL (0.6-1.3); POTASSIUM - SERUM 3.5 mmol/L (3.5-5.1); PROTEIN - SERUM 5.8 g/dL (6.4-8.2)
--- NOTE | 2021-03-09 07:36 | NUR ---
ALERT AND ORIENTED TO SELF. ASSESSMENT COMPLETE. DENIES NEEDS. BED LOW. CALL ANDREW AND PERSONAL ITEMS IN REACH. WILL CONTINUE TO MONITOR.
[2021-03-09 10:12] VITALS: BP 131/79
--- NOTE | 2021-03-09 14:08 | NUR ---
REPORT CALLED TO NURSE AT THE [facility]. DENIES QUESTIONS. NO IV TO REMOVE. VAN FROM [facility] TO GERIATRIC CASE MANAGER PATIENT AT 1500.
--- NOTE | 2021-03-09 14:26 | MORECARE ---
CASE MANAGEMENT DISCHARGE SUMMARY PATIENT: ROSEMARIE HERNANDEZ UNIT: [id number] ADM DATE: 02/26/21 AGE: 85 : 35 SEX: F ROOM/BED: D.2227 AUTHOR: ASHA,DOC PHYSICIAN: REFERRING PHYSICIAN: SUHAIL HO MD DATE OF SERVICE: 03/09/21 Case Management Discharge Planning Summary COMMENTS ENTERED DATE: 03/09/21 14:19 CT COMMENT TYPE: Discharge Planning REVIEWER: Jaylene Saldaña PATIENT TO DC TO THE [facility] FOR REHAB TODAY AROUND 3PM. IMM EXPLAINED AND SIGNED BY HER . HE IS NOW AT THE BEDSIDE. CM TO FOLLOW AND ASSIST NEEDED. ENTERED DATE: 03/08/21 11:20 CT COMMENT TYPE: Discharge Planning REVIEWER: Bhavana Koko RECEIVED A CALL FROM PATIENT'S POA AND SHE STATED THAT THEY ARE [id number]OSPICE ANDWE SHOULD BE ABLE TO PROCEED [place] AUTH FOR THE [facility] FOR REHAB, I SPOKE WITH JUNIOR WITH THE [facility] AND SENT HER UPDATES, SHE STATED THAT THEY WOULD SUBMIT FOR AUTH TODAY CM TO FOLLOW AND ASSIST NEEDED ENTERED DATE: 03/04/21 15:24 CT COMMENT TYPE: Discharge Planning REVIEWER: Jaylene Saldaña CM MET WITH PATIENT AND HER AT BEDSIDE ABOUT DC PLANNING NEEDS. STATES SHE WAS AT THE [facility] ON HOSPICE BUT WILL NEED TO RETURN FOR REHAB. SHE IS POST OP HIP. THE [facility] WILL NEED TO GET PREAUTH FROM HER INSURANCE COMPANY FOR REHAB. THE [facility] IS WORKING ON THE PREAUTH. I ANTICIPATE TOMORROW OR THE NEXT DAY FOR AN ANSWER ON THE PREAUTH. CM TO FOLLOW AND ASSIST NEEDED. Appended by Jaylene Piper on 03/04/2021 15:44 CDT: STATES THEY HAVE A MEMBERSHIP WITH [employer]. HUSBANDS PHONE NUMBER [phone]. DCP REVIEW SUMMARY ANTICIPATED D/C DATE: EXPECTED LOS : CASE STATUS: DCP Initiated INITIAL REVIEW: 02/26/2021 INITIAL REVIEWER: Jaylene Saldaña FINAL DISCHARGE DISPOSITION: : FINAL REVIEWER: FINAL REVIEW DATE: DCP Focus Questions & Answers QUESTION: ANSWER : PROVIDER NETWORKING REVIEW DATE: 03/04/2021 SERVICE TYPE: [facility] Facility REVIEWER: Jaylene Saldaña PROVIDER: FINAL PROVIDER? : FINAL DATE/TIME: CT PATIENT: ROSEMARIE HERNANDEZ ENCOUNTER: [id number] MEDICAL RECORD#: [id number] ADMISSION DATE: 02/26/2021 DISCHARGE DATE: ATTENDING MD: SUHAIL SALAZAR : AGE: 85 MARITAL STATUS: M DC PLAN ID: [id number] FACILITY: [facility] PRINTED ON: 03/09/21 14:26 CT All edits/amendments must be made on the electronic document DICTATION DATE: 03/09/211425 ASSURANCE SOURCING MANAGER: DM 03/09/211425 RPT#: [id number] DC DATE: STATUS: ADM IN [facility] [address] [place] [address] END OF REPORT
--- NOTE | 2021-03-09 14:27 | NUR ---
NOW AT BEDSIDE. DC EDUCATION PROVIDED TO BY RN AND CASE MANAGEMENT. DENIES QUESTIONS.
--- NOTE | 2021-03-09 14:52 | NUR ---
PATIENT CHANGED AND BRIEF PLACED ON PATIENT FOR DC. ASSISTED TO BY TWO RNS. DC BACK TO [facility] WITH ALL BELONGINGS. WITH PATIENT.
--- NOTE | 2021-03-09 16:13 | NUR ---
OT NOTE: PT COMPLETED SUPINE TO SIT WITH MOD A. PT COMPLETED EOB SITTING WITH CGA-MIN A. PT COMPLETED SIT TO STAND WITH MOD A. PT REQUIRED MAX A FOR HAIR GROOMING. PT REQUIRED MIN A FOR FACE AND HAND HYGIENE. PT REQUIRED MOD A FOR POSITIONING IN BED. [id number] [employer]
--- NOTE | 2021-03-10 14:43 | MORECARE ---
CASE MANAGEMENT DISCHARGE SUMMARY PATIENT: ROSEMARIE HERNANDEZ UNIT: [id number] ADM DATE: 02/26/21 AGE: 85 : 35 SEX: F ROOM/BED: D.2227 AUTHOR: ASHA,DOC PHYSICIAN: REFERRING PHYSICIAN: SUHAIL HO MD DATE OF SERVICE: 03/10/21 Case Management Discharge Planning Summary COMMENTS ENTERED DATE: 03/09/21 14:19 CT COMMENT TYPE: Discharge Planning REVIEWER: Jaylene Saldaña PATIENT TO DC TO THE [facility][1] FOR REHAB TODAY AROUND 3PM. IMM EXPLAINED AND SIGNED BY HER . HE IS NOW AT THE BEDSIDE. CM TO FOLLOW AND ASSIST NEEDED. ENTERED DATE: 03/08/21 11:20 CT COMMENT TYPE: Discharge Planning REVIEWER: Bhavana Koko RECEIVED A CALL FROM PATIENT'S POA AND SHE STATED THAT THEY ARE [id number] SHOULD BE ABLE TO PROCEED WITHTHE AUTH FOR THE [facility][1] FOR REHAB, I SPOKE WITH JUNIOR WITH THE [facility][1] AND SENT HER UPDATES, SHE STATED THAT THEY WOULD SUBMIT FOR AUTH TODAY CM TO FOLLOW AND ASSIST NEEDED ENTERED DATE: 03/04/21 15:24 CT COMMENT TYPE: Discharge Planning REVIEWER: Jaylene Saldaña CM MET WITH PATIENT AND HER AT BEDSIDE ABOUT DC PLANNING NEEDS. STATES SHE WAS AT THE [facility] ON HOSPICE BUT WILL NEED TO RETURN FOR REHAB. SHE IS POST OP HIP. THE [facility] WILL NEED TO GET PREAUTH FROM HER INSURANCE COMPANY FOR REHAB. THE [facility] IS WORKING ON THE PREAUTH. I ANTICIPATE TOMORROW OR THE NEXT DAY FOR AN ANSWER ON THE PREAUTH. CM TO FOLLOW AND ASSIST NEEDED. Appended by Jaylene Piper on 03/04/2021 15:44 CDT: STATES THEY HAVE A MEMBERSHIP WITH [employer]. HUSBANDS PHONE NUMBER [phone]. DCP REVIEW SUMMARY ANTICIPATED D/C DATE: EXPECTED LOS : CASE STATUS: DCP Complete INITIAL REVIEW: 02/26/2021 INITIAL REVIEWER: Jaylene Saldaña FINAL DISCHARGE DISPOSITION: : FINAL REVIEWER: FINAL REVIEW DATE: [facility] Focus Questions & Answers QUESTION: ANSWER : PROVIDER NETWORKING REVIEW DATE: 03/04/2021 SERVICE TYPE: [facility] Facility REVIEWER: Jaylene Saldaña PROVIDER: FINAL PROVIDER? : FINAL DATE/TIME: CT PATIENT: ROSEMARIE HERNANDEZ ENCOUNTER: [id number] MEDICAL RECORD#: [id number] ADMISSION DATE: 02/26/2021 DISCHARGE DATE: 03/09/2021 ATTENDING MD: SUHAIL SALAZAR : 1935-Servando-07 AGE: 85 MARITAL STATUS: M DC PLAN ID: [id number] FACILITY: [facility] PRINTED ON: 03/10/21 14:43 CT All edits/amendments must be made on the electronic document DICTATION DATE: 03/10/211442 CHECK VIEWER: BELLA 03/10/21 144 RPT#: [id number] DC DATE:03/09/21 STATUS: DIS IN [facility] [address] [place] [address] END OF REPORT
--- NOTE | 2021-03-11 13:31 | MORECARE ---
CASE MANAGEMENT DISCHARGE SUMMARY PATIENT: ROSEMARIE HERNANDEZ UNIT: [id number] ADM DATE: 02/26/21 AGE: 85 : 35 SEX: F ROOM/BED: D.2227 AUTHOR: ASHA,DOC PHYSICIAN: REFERRING PHYSICIAN: SUHAIL HO MD DATE OF SERVICE: 03/11/21 Case Management Discharge Planning Summary COMMENTS ENTERED DATE: 03/09/21 14:19 CT COMMENT TYPE: Discharge Planning REVIEWER: Jaylene Saldaña PATIENT TO DC TO THE [facility] FOR REHAB TODAY AROUND 3PM. IMM EXPLAINED AND SIGNED BY HER . HE IS NOW AT THE BEDSIDE. CM TO FOLLOW AND ASSIST NEEDED. ENTERED DATE: 03/08/21 11:20 CT COMMENT TYPE: Discharge Planning REVIEWER: Bhavana Koko RECEIVED A CALL FROM PATIENT'S POA AND SHE STATED THAT THEY ARE [id number] SHOULD BE ABLE TO PROCEED WITHTHE AUTH FOR THE [facility] FOR REHAB, I SPOKE WITH JUNIOR WITH THE [facility] AND SENT HER UPDATES, SHE STATED THAT THEY WOULD SUBMIT FOR AUTH TODAY CM TO FOLLOW AND ASSIST NEEDED ENTERED DATE: 03/04/21 15:24 CT COMMENT TYPE: Discharge Planning REVIEWER: Jaylene Saldaña CM MET WITH PATIENT AND HER AT BEDSIDE ABOUT DC PLANNING NEEDS. STATES SHE WAS AT THE [facility] ON HOSPICE BUT WILL NEED TO RETURN FOR REHAB. SHE IS POST OP HIP. THE [facility] WILL NEED TO GET PREAUTH FROM HER INSURANCE COMPANY FOR REHAB. THE [facility] IS WORKING ON THE PREAUTH. I ANTICIPATE TOMORROW OR THE NEXT DAY FOR AN ANSWER ON THE PREAUTH. CM TO FOLLOW AND ASSIST NEEDED. Appended by Jaylene Piper on 03/04/2021 15:44 CDT: STATES THEY HAVE A MEMBERSHIP WITH [employer]. HUSBANDS PHONE NUMBER [phone]. DCP REVIEW SUMMARY ANTICIPATED D/C DATE: EXPECTED LOS : CASE STATUS: DCP Complete INITIAL REVIEW: 02/26/2021 INITIAL REVIEWER: Jaylene Saldaña FINAL DISCHARGE DISPOSITION: : FINAL REVIEWER: FINAL REVIEW DATE: [facility] Focus Questions & Answers QUESTION: ANSWER : PROVIDER NETWORKING REVIEW DATE: 03/04/2021 SERVICE TYPE: Custodial Facility REVIEWER: Jaylene Saldaña PROVIDER: FINAL PROVIDER? : FINAL DATE/TIME: CT PATIENT: ROSEMARIE HERNANDEZ ENCOUNTER: [id number] MEDICAL RECORD#: [id number] ADMISSION DATE: 02/26/2021 DISCHARGE DATE: 03/09/2021 ATTENDING MD: SUHAIL SALAZAR : 1935-Servando-07 AGE: 85 MARITAL STATUS: M DC PLAN ID: [id number] FACILITY: [facility] PRINTED ON: 03/11/21 13:31 CT All edits/amendments must be made on the electronic document DICTATION DATE: 03/11/211330 COUPON AND BOND COLLECTION CLERK: BELLA 03/11/21 133 RPT#: [id number] DC DATE:03/09/21 STATUS: DIS IN [facility] [address] [place] [address] END OF REPORT
== END 2021-03-09 14:53 | DRG 956 ==
LOC: D.ER 04:29 → D.MS 11:21
PROVIDERS: Family Medicine; Family Medicine Adult Medicine; Orthopaedic Surgery; ADMIT Emergency Medicine; ATTEND Emergency Medicine
PROC: 0SPS0JZ Removal of Synthetic Substitute from Left Hip Joint, Femoral Surface, Open Approach (ICD-10-PCS; 2021-03-01)
PROC: 0SRS0JA Replacement of Left Hip Joint, Femoral Surface with Synthetic Substitute, Uncemented, Open Approach (ICD-10-PCS; principal; 2021-03-01 12:30)
DX: S72.142A Displaced intertrochanteric fracture of left femur, initial encounter for closed fracture (principal); S32.502A Unspecified fracture of left pubis, initial encounter for closed fracture; M97.02XA Periprosthetic fracture around internal prosthetic left hip joint, initial encounter; F05 Delirium due to known physiological condition; F03.90 Unspecified dementia, unspecified severity, without behavioral disturbance, psychotic disturbance, mood disturbance, and anxiety; E87.6 Hypokalemia; D64.9 Anemia, unspecified; W19.XXXA Unspecified fall, initial encounter

== ENCOUNTER 2021-04-22 05:21 | Day surgery (SDC) | payer MEDICARE ==
[~2021-04-22] VITALS: Ht 162.6 cm; Wt 74.4 kg
--- NOTE | ~2021-04-22 | OP ---
PATIENT NAME: ROSEMARIE HERNANDEZ MEDICAL RECORD: [id number] :35 LOCATION:[facility] ADMISSION DATE: SURGEON: VERONICA CACERES MD DATE OF OPERATION: 04/22/2021 PREOPERATIVE DIAGNOSES: 1. Incision and debridement left hip wound (skin and subcutaneous tissue). 2. Closure of complex left hip wound (7.5 cm). INDICATIONS FOR THE PROCEDURE: Ms. Hernandez is an 85-year-old female with history of periprosthetic fracture of left hip requiring revision and fixation of the femoral component 03/01/2021. She has done well postoperatively, but developed a small area of wound dehiscence along the proximal and mid incision. We have been performing dressing changes, but the wound has been slow to progress. She returns today for incision and debridement of the wound with closure. Risks, benefits and alternatives of surgery were discussed with the patient and her caregivers and consent was obtained. DESCRIPTION OF THE PROCEDURE: The patient was met in the holding area where her identity and confirmation of procedure was performed. The left lower extremity was marked and she was taken to the operating room where she was placed supine on the operating table, and anesthesia was administered. Left hip was prepped and draped in a sterile fashion. The patient received preoperative antibiotics. A timeout was performed before initiating the case. On initiation of the case, the wound was elliptically excised proximally and mid incision. Total wound length measured 5 cm proximally and 2.5 cm mid incision. Wound was irrigated thoroughly with saline. Culture swabs were then obtained from the proximal wound. The wound appeared to extend through the skin and dermis to the subcutaneous tissues, but the deep tissues were fully closed. The deep subcutaneous tissue was closed with PDS suture. The skin was closed with nylon suture and then covered with Dermabond. A sterile dressing was applied. The patient was turned back over to anesthesia where she was awakened and taken to recovery room in stable condition. POSTOPERATIVE PLAN: The patient is going to return to the [facility] for continued care. We will give her doxycycline to take for the next 10 days. I will plan to see her back in clinic in 2 weeks for a wound check. COMPLICATIONS: None. ESTIMATED BLOOD LOSS: 5 mL. ANESTHESIA: General LMA. TRANSINT:[id number] Voice Confirmation ID: [id number] DOCUMENT ID: [id number] VERONICA CACERES MD CC: [id number] DICTATION DATE: 04/22/21926 SHOP TAILOR APPRENTICE: 04/22/21 0959 REG [facility] [address] [facility]
[~2021-04-22 05:21] MED LIST changes: +ACETAMINOPHEN325 MG PO; +ATARAX 25 MG TA25 MG PO; +DONEPEZIL HCL10 MG PO; +DOXYCYCLINE HY100 M2 PO; +ELIQUIS2.5 MG PO; +FISH OIL 1,0001 CA1 PO; +MAG-OX 400 MG400 MG PO; +MUCINEX600 MG PO; +NAMENDA5 MG PO; +TESSALON PERLE100 MG PO; +VENTOLIN HFA [SP8 GM INH; +VITAMIN D325 MC1 PO; +VITAMIN E200 UNI1 PO
[2021-04-22 06:18] LABS: ANION GAP 12.5 mmol/L (8-16); BASOPHILS 0.9 % (0-2); CALCIUM 8.6 mg/dL (8.5-10.1); CARBON DIOXIDE 26.9 mmol/L (21.0-32.0); EOSINOPHILS 1.3 % (0-7); HEMATOCRIT 37.4 % (36.0-48.0); HEMOGLOBIN 12.2 g/dL (12-16); LYMPHOCYTES 29.8 % (15-50); MCH 30.3 pg (26.0-34.0); MCHC 32.6 g/dL (31.0-37.0); MCV 93.2 fL (80.0-100.0); MEAN PLATELET VOLUME 7.7 fL (7.4-10.4); MONOCYTES 9.6 % (2-11); NEUTROPHILS 58.4 % (40-80); POTASSIUM - SERUM 3.4 mmol/L (3.5-5.1); RBC 4.02 10x6/uL (4.00-5.40); RDW 13.9 % (11.5-14.5); WBC 7.8 10x3/uL (4.8-10.8)
[2021-04-22 06:30] LABS: APTT 25.5 SECONDS (22.8-39.4); INR 1.11 (0.85-1.17); PLATELET COUNT 361 10x3/uL (130-400); PROTIME 13.3 SECONDS (11.6-15.0)
[2021-04-22 07:05] VITALS: BP 147/72; Ht 162.6 cm; Wt 74.4 kg
--- NOTE | 2021-04-22 11:31 | NUR ---
1025 O2 SAT 97% ON BNC 2L/MIN. [facility] DC'D. 1040 OXYGEN SATURATION IS 89% ON ROOM AIR. BNC RESTARTED AT 2L/MIN. 1047 OXYGEN SATURATION IS 99% DECREASED BNC TO 1L/MIN
--- NOTE | 2021-04-22 13:07 | NUR ---
1130 BNC DC'D. PT MORE AWAKE/SITTING UP AND EATING CHOCOLATE PUDDING. 1152 IV DC'D. CATHETER TIP INTACT. NO BLEEDING AT SITE. COBAN DRESSING APPLIED TO SITE. 1220 PT READY FOR DISCHARGE TO RETIREMENT. CAREGIVER IS THE TRANSPORTER BACK TO THE [facility].
== END 2021-04-22 12:20 | disposition home or self-care (01) ==
LOC: D.OPS 05:21
PROVIDERS: Anesthesiology; ATTEND Orthopaedic Surgery
DX: T81.31XD Disruption of external operation (surgical) wound, not elsewhere classified, subsequent encounter (principal); M25.552 Pain in left hip; M97.01XD Periprosthetic fracture around internal prosthetic right hip joint, subsequent encounter